=== PATIENT | male | born 1975 | race Caucasian/White ===

== ENCOUNTER 2018-07-08 13:37 | Emergency (ER) | payer BC ==
[2018-07-08 14:04] VITALS: TEMP 97
[2018-07-08 14:44] LABS: BASOPHILS % (AUTO) 1 % (0-3); EOSINOPHILS % (AUTO) 6 % (0-9); HEMATOCRIT 51 % (39-53); HEMOGLOBIN 16.6 gm/dl (13.5-17.7); LYMPHOCYTES % (AUTO) 15.3 % (10-50); MEAN CORPUSCULAR HEMOGLOBIN 30.7 pg (27.0-32.0); MEAN CORPUSCULAR HGB CONC 32.9 gm/dl (32.0-36.0); MEAN CORPUSCULAR VOLUME 93 fL (80-100); MONOCYTES % (AUTO) 6.5 % (0-12); NEUTROPHILS % (AUTO) 72.1 % (37-80)
[2018-07-08 14:54] LABS: BLOOD UREA NITROGEN 16 mg/dl (7-18); CALCIUM 8.8 mg/dl (8.5-10.1); CARBON DIOXIDE 23.6 mEq/L (21-32); CHLORIDE 101 mMol/L (98-107); CREATININE 0.73 mg/dl (0.80-1.30); GLUCOSE 94 mg/dl (74-106); POTASSIUM 3.8 mMol/L (3.5-5.1); SODIUM 136 mMol/L (136-145); TROP I < 0.017 ng/ml (0.000-0.056)
[2018-07-08 18:11] VITALS: RESP 16
[2018-07-08 18:52] VITALS: BP 152/81; PULSE 72; O2SAT 99
== END 2018-07-08 18:39 | disposition home or self-care (01) ==
LOC: ED 13:37
DX: R07.89 Other chest pain (principal)
CPT/HCPCS: 36415; 71046; 80048; 84443; 84484; 85025; 93005; 99284